=== PATIENT | male | born 1955 | race Caucasian/White ===

== ENCOUNTER 2020-05-16 16:00 | Emergency (ER) | payer SELFPAY ==
[~2020-05-16] VITALS: Ht 172.7 cm; Wt 74.8 kg
--- NOTE | 2020-05-16 16:00 | NUR ---
Patient BIBA ALS, transferred to bed 14. RN evaluating patient at bedside.
[2020-05-16 16:07] VITALS: BP 135/98
--- NOTE | 2020-05-16 16:17 | NUR ---
64 y/o male biba for 2 syncopal episodes at home witnessed by family. Per family pt had cancer removal from bladder 2 days prior. Pt became diaphoretic and tachycardic prior to syncopal episode. Pt took hydrocodone at 1400 for left hip pain. Awake and alert. Skin warm, dry, intact. medhx: bladder cancer, bone cancer, HTN, DM, HLD
--- NOTE | 2020-05-16 16:25 | NUR ---
20G IV placed to left ac, blood drawn and walked to lab.
--- NOTE | 2020-05-16 16:30 | NUR ---
Patient taken to x-ray via rcarlos
[2020-05-16 16:33] LABS: BASOPHILS % (AUTO) 0.4 % (0.0-2.0); EOSINOPHILS # (AUTO) 0.2 K/uL (0-0.4); EOSINOPHILS % (AUTO) 1.5 % (0.0-4.0); HEMATOCRIT 30.9 % (36-52); HEMOGLOBIN 10.3 g/dL (12.0-18.0); LYMPHOCYTES # (AUTO) 0.8 K/uL (2.0-11.5); LYMPHOCYTES % (AUTO) 7.3 % (20.5-51.1); MEAN CORPUSCULAR HEMOGLOBIN 29 pg (27-31); MEAN CORPUSCULAR HGB CONC 33 g/dL (33-37); MEAN CORPUSCULAR VOLUME 87.9 fL (80-94); MONOCYTES % (AUTO) 9.2 % (1.7-9.3); NEUTROPHILS % (AUTO) 81.6 % (42.2-75.2); PLATELET COUNT (AUTO) 247 K/uL (140-450); RED BLOOD CELL COUNT(AUTO) 3.51 MIL/uL (4.20-6.10); RED CELL DISTRIBUTION WIDTH 13.4 % (11.6-13.7); WHITE BLOOD COUNT (AUTO) 11.1 K/uL (4.8-10.8)
[2020-05-16 16:53] LABS: ALBUMIN 3.3 g/dL (3.4-5.0); ANION GAP 13.6 (8-16); CARBON DIOXIDE 26.2 mmol/L (21-32); CREATININE 1.8 mg/dL (0.6-1.3); POTASSIUM 4.8 mmol/L (3.5-5.1); TOTAL BILIRUBIN 0.3 mg/dL (0.0-1.0)
[2020-05-16] MEDS ORDERED: NACL 0.9% 1,000 ML IV ONE (17:00)
[2020-05-16] MEDS ORDERED: MORPHINE SULFATE 4 MG/ML SYR IVP ONE (17:20)
--- NOTE | 2020-05-16 17:34 | NUR ---
Urine collected via mcdonald catheter, 350cc of red urine collected at this time.
--- NOTE | 2020-05-16 17:56 | NUR ---
Decrease in pain after receiving IV Morphine. Pt positioned for comfort. VSS.
[2020-05-16 18:07] LABS: APPEARANCE,URINE CLOUDY (CLEAR); BILIRUBIN,URINE NEGATIVE (NEGATIVE); BLOOD, URINE 3+ (NEGATIVE); COLOR,URINE RED (YELLOW); LEUKOCYTE ESTERASE ,URINE 2+ (NEGATIVE); NITRITE, URINE POSITIVE (NEGATIVE); PH,URINE 6.5 (5.0-9.0); UGLUCOSE 1+ (NEGATIVE)
[2020-05-16 18:17] LABS: RBC,URINE TOO NUMEROUS TO COUN /HPF (0-5)
[2020-05-16 18:18] LABS: WBC,URINE 0-5 /HPF (0-5)
--- NOTE | 2020-05-16 18:21 | NUR ---
IV removed, catheter intact and site benign. Applied folded 4x4 gauze and tape to stop bleeding.
[2020-05-16 18:40] VITALS: BP 127/91
--- NOTE | 2020-05-16 18:40 | NUR ---
Patient discharged with v/s stable. Written and verbal after care instructions given and explained. Patient alert, oriented and verbalized understanding of instructions. Wheel Chair Assisted with to car. All questions addressed prior to discharge. ID band removed. Patient advised to follow up with PMD. Rx of Zofran 8mg and Cipro 500mg given. Patient educated on indication of medication including possible reaction and side effects. Opportunity to ask questions provided and answered.
== END 2020-05-16 18:40 | disposition home or self-care (01) ==
LOC: MED 16:00
DX: R55 Syncope and collapse (principal); N39.0 Urinary tract infection, site not specified; E87.1 Hypo-osmolality and hyponatremia; E11.9 Type 2 diabetes mellitus without complications; I10 Essential (primary) hypertension; Z85.51 Personal history of malignant neoplasm of bladder
CPT/HCPCS: 36415; 71045; 80053; 81001; 83880; 84484; 85025; 87086; 93005; 96361; 96374; 99285; J2270